=== PATIENT | female | born 2000 | race African-American/Black ===

== ENCOUNTER 2023-10-29 18:24 | Emergency (ER) | payer BC, OTHER ==
[~2023-10-29] VITALS: Ht 170.2 cm; Wt 100.0 kg
[2023-10-29 18:33] VITALS: O2SAT 97
[2023-10-29 19:20] VITALS: BP 117/65; PULSE 86; RESP 14; TEMP 98.5
== END 2023-10-29 19:28 | disposition home or self-care (01) ==
LOC: ER 18:24
DX: J02.9 Acute pharyngitis, unspecified (principal); R50.9 Fever, unspecified; Z20.822 Contact with and (suspected) exposure to COVID-19
CPT/HCPCS: 99283; 87426; C9803